=== PATIENT | male | born 1975 | race Caucasian/White ===

== ENCOUNTER 2017-02-13 00:43 | Emergency (ER) | payer OTHER ==
[~2017-02-13] VITALS: Ht 177.8 cm; Wt 113.0 kg
[~2017-02-13 00:43] MED LIST: CIPR500T4 PO; HYDR-3498 PO; IBUP-1542 PO; NAPR-260 PO; PRED20TA PO
[2017-02-13 00:45] VITALS: Ht 177.8 cm; Wt 113.0 kg
[2017-02-13] MEDS ORDERED: IBUP-1542 PO (01:44)
[2017-02-13] MEDS ORDERED: DICY10CA60 PO (01:44)
--- NOTE | 2017-02-13 02:05 | ERD ---
ER Documentation Chief Complaint Date/Time DATE: 02/13/17 TIME: 02:03 Chief Complaint diarrhea x 1 day, denies abd pain HPI 41-year-old male presents here in emergency department for complaints of diarrhea episodes that started yesterday. Patient had multiple episodes. Patient does not have any blood in the stool or black stool. Patient does not have any nausea or vomiting. Patient does not have any abdominal pain. Patient does not have any fever or chills. ROS All systems reviewed and are negative except as per history of present illness. Medications Home Meds Active Scripts Ibuprofen* (Motrin*) 600 Mg Tab, 600 MG PO Q6H Y for PAIN AND OR ELEVATED TEMP, #30 TAB Prov:HARPREET DORSEY [employer] 02/13/17 Dicyclomine Hcl* (Bentyl*) 10 Mg Capsule, 10 MG PO QID, #20 CAP Prov:HARPREET DORSEY [employer] 02/13/17 Ibuprofen* (Motrin*) 600 Mg Tab, 600 MG PO Q6, #30 TAB Prov:DOROTHEA ANDREW PA-C 03/19/16 Ciprofloxacin Hcl* (Ciprofloxacin Hcl*) 500 Mg Tablet, 500 MG PO BID for 7 Days , TAB Prov:DOROTHEA ANDREW PA-C 03/19/16 Naproxen* (Naprosyn*) 500 Mg Tablet, 500 MG PO BID Y for PAIN AND/OR INFLAMMATION, #30 TAB Prov:ABIEL INGRAM PA-C 05/30/15 Hydrocodone Bit-Acetaminophen* ([place]*) 5-325 Mg Tab, 1 TAB PO Q6 Y for PAIN, # 10 TAB Prov:ABIEL INGRAM PA-C 05/30/15 Prednisone* (Prednisone*) 20 Mg Tab, 40 MG PO DAILY for 4 Days, TAB Prov:ABIEL INGRAM PA-C 05/30/15 Allergies Allergies: Coded Allergies: No Known Allergy (Unverified , 02/13/17) PMhx/Soc Medical and Surgical Hx: pt denies Medical Hx, pt denies Surgical Hx History of Surgery: No Anesthesia Reaction: No Hx Neurological Disorder: No Hx Respiratory Disorders: No Hx Cardiac Disorders: No Hx Psychiatric Problems: No Hx Miscellaneous Medical Probl: No Hx Alcohol Use: No Hx Substance Use: No Hx Tobacco Use: No Smoking Status: Never smoker FmHx Family History: No coronary disease, No diabetes, No other Physical Exam Vitals Vital Signs Date Time Temp Pulse Resp B/P Pulse Ox O2 Delivery O2 Flow Rate FiO2 02/13/17 00:45 98.3 85 20 134/69 99 Physical Exam GENERAL: The patient is well developed and appropriate for usual state of health, in no apparent distress. CHEST: Clear to auscultation bilaterally. There are no rales, wheezes or rhonchi. HEART: Regular rate and rhythm. No murmurs, clicks, rubs or gallops. No S3 or S4. ABDOMEN: Soft, nontender and nondistended. Hyperactive bowel sounds. No rebound or guarding. No gross peritonitis. No gross organomegaly or masses. No Duarte sign or McBurney point tenderness. BACK: No midline or flank tenderness. EXTREMITIES: Equal pulses bilaterally. There is no peripheral clubbing, cyanosis or edema. No focal swelling or erythema. Full range of motion. Grossly neurovascularly intact. NEURO: Alert and oriented. Cranial nerves 2-12 intact. Motor strength in all 4 extremities with 5/5 strength. Sensation grossly intact. Normal speech and gait. SKIN: There is no apparent rash or petechia. The skin is warm and dry. HEMATOLOGIC AND LYMPHATIC: There is no evidence of excessive bruising or lymphedema. No gross cervical, axillary, or inguinal lymphadenopathy. Procedures/MDM Medical Decision Making: Patient's symptoms most likely consistent with viral diarrhea. No symptoms of dehydration. Does not complain of abdominal pain. There is low suspicion for abdominal emergencies at this time. Patients abdominal exam is normal at this time. Radiology exam is not indicated at this time. There is low suspicion for appendicitis, cholecystitis, abdominal aortic aneurysms or peritonitis at this time. There is low suspicion for sepsis. Patient appears well and is hemodynamically stable. Disposition: Home. Condition: Stable Prescription Bentyl, ibuprofen Instructions: Patient is advised to take medications as prescribed. Patient is advised to rest, increase fluid intake and do brat diet for next 1-2 days and progress as tolerated. Patient is advised that if symptoms are worse, severe abdominal pain, uncontrolled vomiting, high fever, severe flank pain, worst signs and symptoms, to return to the emergency department immediately. Otherwise, patient can follow up with primary care doctor in 5-7 days. Departure Diagnosis: Primary Impression: Diarrhea Diarrhea type: unspecified type Qualified Code: R19.7 - Diarrhea, unspecified type Condition: Stable Patient Instructions: Gastroenteritis, Viral (6Y-Adult) Referrals: FINA VELASQUEZ (PCP) HARPREET DORSEY NP February 13, 2017 02:05
== END 2017-02-13 02:06 | disposition home or self-care (01) ==
LOC: FTE 00:43
DX: R19.7 Diarrhea, unspecified (principal)
CPT/HCPCS: 99283